=== PATIENT | female | born 1985 | race Two or more races ===

== ENCOUNTER 2024-11-05 21:37 | Emergency (ER) | payer MEDICAID ==
[~2024-11-05] VITALS: Ht 167.6 cm; Wt 79.0 kg
[2024-11-05 21:38] VITALS: BP 132/78; PULSE 92; RESP 16; TEMP 99; O2SAT 100
[2024-11-05 22:09] LABS: BASOPHILS % (AUTO) 0.5 % (0.0-2.0); EOSINOPHILS % (AUTO) 1.2 % (1.0-6.0); HEMATOCRIT 31.8 % (36-46); HEMOGLOBIN 9.7 g/dL (12.0-16.0); LYMPHOCYTES % (AUTO) 21.5 % (22.0-44.0); MEAN CORPUSCULAR HEMOGLOBIN 21.6 pg (26.0-34.0); MEAN CORPUSCULAR HGB CONC 30.4 G/dL (31.0-37.0); MEAN CORPUSCULAR VOLUME 71 fL (80-100); MONOCYTES # (AUTO) 0.5 K/uL (0.1-1.0); MONOCYTES % (AUTO) 5.8 % (2.0-9.0); NEUTROPHILS # (AUTO) 6.6 K/uL (1.8-7.7); PLATELET COUNT (AUTO) 344 K/uL (150-450); RED BLOOD CELL COUNT(AUTO) 4.49 MIL/uL (4.00-5.20); RED CELL DISTRIBUTION WIDTH 16.1 % (11.5-14.5); WHITE BLOOD COUNT (AUTO) 9.4 K/uL (4.5-11.0)
[2024-11-05 22:26] LABS: RBC MORPHOLOGY COMMENT ABNORMAL RBC MORPH
[2024-11-05 22:40] LABS: ANION GAP 10 mmol/L (8-16); CALCIUM, TOTAL 9.2 mg/dL (8.8-10.5); CARBON DIOXIDE 25 mmol/L (22-29); CHLORIDE 100 mmol/L (98-107); CREATININE 0.79 mg/dL (0.60-1.30); GLOMERULAR FILTR. RATE CALC > 60 mL/min (>60); GLUCOSE,RANDOM 92 mg/dL (70-110); POTASSIUM 3.3 mmol/L (3.5-5.1); SODIUM SERUM 135 mmol/L (136-145); UREA NITROGEN, BLOOD 14 mg/dL (7-18)
[2024-11-05 22:45] LABS: BILIRUBIN,DIRECT 0.1 mg/dL (0.00-0.20); BILIRUBIN,TOTAL 0.2 mg/dL (0.1-1.0); TOTAL PROTEIN, SERUM 8.2 g/dL (6.4-8.2)
[2024-11-05 22:52] LABS: TROPONIN I-HIGH SENSITIVITY Less Than 4 ng/L (<51)
[2024-11-06] MEDS ORDERED: ACET-66 PO (00:34)
[2024-11-06] MEDS ORDERED: IBUP-1554 PO (00:34)
[2024-11-06] MEDS: ACETAMINOPHEN 500 MG TABLET PO ONE (00:54)
[2024-11-06] MEDS: IBUPROFEN 600 MG TABLET PO ONE (00:54)
== END 2024-11-06 00:56 | disposition home or self-care (01) ==
LOC: EMS 21:38
DX: M62.830 Muscle spasm of back (principal); R20.2 Paresthesia of skin
CPT/HCPCS: 71045; 80048; 80076; 84484; 85025; 93005; 99285; 36415-L1; 36415-TC